=== PATIENT | female | born 1930 | race Caucasian/White ===

== ENCOUNTER 2018-12-02 10:53 | Inpatient (IN) | payer MEDICARE, BC ==
[~2018-12-02] VITALS: Ht 170.2 cm; Wt 70.3 kg
[2018-12-02] MEDS ORDERED: ipratropium/albuterol 3ml nebule NEB ONE (11:20)
[2018-12-02] MEDS ORDERED: BIOT5CAP3 PO (11:32)
[2018-12-02] MEDS ORDERED: CALC500T11 PO (11:32)
[2018-12-02] MEDS ORDERED: DILTIAZEM CD PO (11:32)
[2018-12-02] MEDS ORDERED: FURO-150 PO (11:32)
[2018-12-02] MEDS ORDERED: POTA10TA10 PO (11:32)
[2018-12-02] MEDS ORDERED: CHOL400T PO (11:32)
[2018-12-02] MEDS ORDERED: LEVO50TA66 PO (11:32)
[2018-12-02] MEDS ORDERED: NAPR220C15 PO (11:32)
[2018-12-02] MEDS ORDERED: WARF5TAB9 PO (11:32)
[2018-12-02] MEDS ORDERED: ATEN50TA PO (11:32)
[2018-12-02] MEDS ORDERED: OMEP40CA37 PO (11:32)
[2018-12-02] MEDS ORDERED: levoFLOXACIN-Levaquin 500mg/D5 100 ML IV ONE (11:45)
[2018-12-02] MEDS ORDERED: CefTRIAXone 2gm/D5W 50ml 50 ML IV ONE (11:45)
[2018-12-02 11:47] LABS: BASOPHILS # (AUTO) 0.1 X10'3 (0-0.2); BASOPHILS % (AUTO) 0.6 % (0-1); EOSINOPHILS % (AUTO) 0.1 % (0-6); HEMOGLOBIN 12.4 g/dl (12.0-16.0); LYMPHOCYTES # (AUTO) 0.7 X10'3 (1.1-4.8); LYMPHOCYTES % (AUTO) 6.9 % (21-51); MEAN CORPUSCULAR HEMOGLOBIN 27.5 PG (27.0-31.0); MEAN CORPUSCULAR HGB CONC 32.7 % (33.0-36.5); MEAN CORPUSCULAR VOLUME 84.2 FL (78-98); MEAN PLATELET VOLUME 8.4 FL (7.4-10.4); MONOCYTES # (AUTO) 0.9 X10'3 (0-0.9); MONOCYTES % (AUTO) 9.1 % (2-12); NEUTROPHILS # (AUTO) 8.2 X10'3 (1.8-7.7); NEUTROPHILS % (AUTO) 83.3 % (42-75); PLATELET COUNT 242 X10'3 (140-440); RED BLOOD COUNT 4.51 X10'6 (4.20-5.60); RED CELL DISTRIBUTION WIDTH 13.9 % (11.5-14.5); WHITE BLOOD COUNT 9.9 X10'3 (4.5-11.0)
[2018-12-02 11:59] LABS: INR 2.2 INR; PROTHROMBIN TIME 21.3 SECONDS (9.0-12.0)
[2018-12-02 12:07] LABS: ALANINE AMINOTRANSFERASE 30 U/L (12-78); ALBUMIN 3.2 G/DL (3.4-5.0); ALBUMIN/GLOBULIN RATIO 0.7 (1.1-1.5); ALKALINE PHOSPHATASE 81 IU/L (46-116); ANION GAP 12 (8-16); ASPARTATE AMINO TRANSFERASE 35 U/L (10-37); BILIRUBIN,TOTAL 0.6 MG/DL (0.1-1.0); BLOOD UREA NITROGEN 18 MG/DL (7-18); BUN/CREATININE RATIO 19.8 (6.6-38.0); CALCIUM 8.7 MG/DL (8.5-10.1); CHLORIDE 98 MMOL/L (99-107); CREATININE 0.91 MG/DL (0.40-0.90); GLUCOSE 115 MG/DL (70-104); POTASSIUM 4.1 MMOL/L (3.5-5.1); SODIUM 135 MMOL/L (135-145); TOTAL PROTEIN 7.9 G/DL (6.4-8.2); eGFR 59 ML/MIN
[2018-12-02 12:14] LABS: MAGNESIUM 1.9 MG/DL (1.5-2.4); TROPONIN I < 0.04 NG/ML (0.0-0.05)
[2018-12-02 12:16] LABS: PLATELET ESTIMATE NORMAL; TOTAL CELLS COUNTED 100
[2018-12-02] MEDS ORDERED: oseltamivir phos 75mg capsule PO ONE (12:55)
[2018-12-02] MEDS ORDERED: furosemide 10 MG/1 ML 10ml inj IV ONE (13:20)
[2018-12-02] MEDS ORDERED: ondansetron/PF 4mg/2ml inj IV PRN (13:50)
[2018-12-02] MEDS ORDERED: acetaminophen 325mg tablet PO PRN (13:50)
[2018-12-02] MEDS ORDERED: magnesium hydroxide 30ml (MOM) UD suspension PO PRN (13:50)
[2018-12-02] MEDS ORDERED: mag hydrox/Alum hydrox/simeth 30ml oral suspension PO PRN (13:50)
--- NOTE | 2018-12-02 13:57 | NUR ---
PT WALKED TO THE BATHROOM AND BACK. THIS USED A LOT OF HER ENERGY AND SHE WILL NEED TO USE A BEDSIDE COMMODE FROM NOW ON UNTIL SHE GAINS SOME OF HER STRENGTH BACK AND IS BREATHING BETTER. PT STATES SHE DID NOT TAKE HER LASIX TODAY AND HER SYMPTOMS WITH THIS SOB STARTED THURSDAY EVENING.
[2018-12-02 14:05] LABS: CLARITY,URINE CLEAR (Clear); COLOR,URINE YELLOW (Yellow); GLUCOSE, URINE NEGATIVE (Neg); KETONES,URINE NEGATIVE (Neg); LEUKOCYTE ESTERASE ,URINE NEGATIVE (Neg); NITRITES, URINE NEGATIVE (Neg); OCCULT BLOOD,URINE MODERATE (Neg); PROTEIN,URINE 100 mg/dl (Neg)
[2018-12-02] MEDS ORDERED: albuterol 2.5 MG/3 ML nebule NEB PRN (14:05)
[2018-12-02 14:14] LABS: UA COLLECTION TYPE CLN CATCH MIDSTREAM
[2018-12-02 14:27] LABS: BACTERIA,URINE 1+ /HPF (Neg); SQUAMOUS EPITHELIAL CELL,UR FEW /LPF (FEW)
[2018-12-02 14:28] LABS: WBC,URINE 0-4 /HPF (0-4)
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
--- NOTE | 2018-12-02 17:30 | NUR ---
Received report from Kady WARD in ER. Patient arrived to room 351 on the surgical floor, daughter at bedside
[2018-12-02 18:00] VITALS: BP 120/68
[2018-12-02 18:02] VITALS: BP 121/64
--- NOTE | 2018-12-02 18:20 | NUR ---
Problems reprioritized. Patient report given, Kayla WARD questions answered & plan of care reviewed with .
--- NOTE | 2018-12-02 18:30 | NUR ---
Received report from primary care nurse Tootie WARD. Assumed patient care. Patient is awake and alert on 3LNC visiting with her daughter. In no apparent distress. Call light and items of frequent use within reach. Will continue to monitor for changes.
[2018-12-02] MEDS: DOXYCYCLINE 100MG CAPSULE PO SCH (20:14)
[2018-12-02] MEDS: furosemide 20 MG/2 ML vial IV SCH (20:14)
[2018-12-02] MEDS ORDERED: warfarin 5mg tablet PO ONE (21:00)
[2018-12-03] VITALS: BP 109/57
[2018-12-03 06:03] LABS: BASOPHILS % (AUTO) 0.1 % (0-1); EOSINOPHILS % (AUTO) 0.1 % (0-6); HEMATOCRIT 36.2 % (35.0-45.0); HEMOGLOBIN 12.1 g/dl (12.0-16.0); LYMPHOCYTES # (AUTO) 1.1 X10'3 (1.1-4.8); LYMPHOCYTES % (AUTO) 8.8 % (21-51); MEAN CORPUSCULAR HEMOGLOBIN 27.9 PG (27.0-31.0); MEAN CORPUSCULAR HGB CONC 33.4 % (33.0-36.5); MEAN CORPUSCULAR VOLUME 83.5 FL (78-98); MEAN PLATELET VOLUME 8.8 FL (7.4-10.4); MONOCYTES # (AUTO) 1.2 X10'3 (0-0.9); NEUTROPHILS # (AUTO) 9.9 X10'3 (1.8-7.7); PLATELET COUNT 232 X10'3 (140-440); RED BLOOD COUNT 4.33 X10'6 (4.20-5.60); WHITE BLOOD COUNT 12.2 X10'3 (4.5-11.0)
[2018-12-03 06:07] LABS: ALBUMIN 2.8 G/DL (3.4-5.0); ANION GAP 13 (8-16); BLOOD UREA NITROGEN 16 MG/DL (7-18); BUN/CREATININE RATIO 19.3 (6.6-38.0); CALCIUM 8.1 MG/DL (8.5-10.1); CHLORIDE 96 MMOL/L (99-107); CREATININE 0.83 MG/DL (0.40-0.90); GLUCOSE 101 MG/DL (70-104); POTASSIUM 3.3 MMOL/L (3.5-5.1); SODIUM 135 MMOL/L (135-145); eGFR 65 ML/MIN
[2018-12-03 06:46] LABS: INR 2.6 INR; PROTHROMBIN TIME 25.4 SECONDS (9.0-12.0)
[2018-12-03 07:00] VITALS: BP 129/66
[2018-12-03] MEDS ORDERED: DILT120C19 PO (07:19)
[2018-12-03] MEDS: CefTRIAXone 2gm/D5W 50ml 50 ML IV SCH (08:44)
[2018-12-03] MEDS: furosemide 20 MG/2 ML vial IV SCH ×2 (08:44→19:34)
[2018-12-03] MEDS: DOXYCYCLINE 100MG CAPSULE PO SCH ×2 (08:44→19:35)
[2018-12-03] MEDS: atenolol 50mg tablet PO SCH (08:44)
[2018-12-03] MEDS ORDERED: magnesium 4gm in 100ml NS 100 ML IV PRN (10:45)
[2018-12-03] MEDS ORDERED: magnesium Cl slow-release 64mg tablet PO PRN (10:45)
[2018-12-03] MEDS ORDERED: potassium Cl 20 mEq SR tablet PO PRN (10:45)
[2018-12-03] MEDS ORDERED: potassium Cl 40MEQ/NS 500ml 500 ML IV PRN ×2 (10:45)
[2018-12-03] MEDS: diltiazem CD 120mg capsule (once-daily) PO SCH (11:30)
[2018-12-03] MEDS ORDERED: levoTHYROXINE 25mcg tablet PO SCH (11:30)
[2018-12-03 12:00] VITALS: BP 95/56
[2018-12-03] MEDS ORDERED: LEVO75TA PO (15:26)
[2018-12-03] MEDS: potassium Cl 20 mEq SR tablet PO PRN ×2 (16:04→20:17)
[2018-12-03 18:00] VITALS: BP 123/77
--- NOTE | 2018-12-03 18:22 | NUR ---
Problems reprioritized. Patient report given, questions answered & plan of care reviewed with Kayla WARD.
--- NOTE | 2018-12-03 18:25 | NUR ---
Received report from primary care nurse Victorina WARD. Assumed patient care. Patient is awake and alert on 3L NC in no apparent distress. Assisted patient to bathroom and checked SpO2. SpO2 was 97% on 3LNC. Lowered to 2LNC. Will continue to monitor for changes. Call light and items of frequent use within reach.
[2018-12-03] MEDS: lactobacillus rhamnosus 10,000 MMU CELLS/CAPSULE PO SCH (19:34)
[2018-12-03] MEDS: guaiFENesin/DM 10ml UD oral syrup PO PRN (19:35)
[2018-12-03] MEDS ORDERED: calcium carbonate 500mg chew tablet PO PRN (20:00)
[2018-12-03] MEDS ORDERED: warfarin 3mg tablet PO ONE (21:00)
[2018-12-04] VITALS: BP 118/71
[2018-12-04] MEDS: potassium Cl 20 mEq SR tablet PO PRN (01:51)
[2018-12-04] MEDS: guaiFENesin/DM 10ml UD oral syrup PO PRN ×2 (01:51→09:18)
--- NOTE | 2018-12-04 06:33 | NUR ---
Reported off to Catalina WARD. Patient is resting with relaxed and unlabored respirations on 1.5LNC. In no apparent distress. Call light and items of frequent use within reach.
[2018-12-04 07:12] LABS: BASOPHILS % (AUTO) 0.3 % (0-1); EOSINOPHILS # (AUTO) 0.2 X10'3 (0-0.9); EOSINOPHILS % (AUTO) 1.6 % (0-6); HEMATOCRIT 40.4 % (35.0-45.0); HEMOGLOBIN 13.1 g/dl (12.0-16.0); LYMPHOCYTES # (AUTO) 1.4 X10'3 (1.1-4.8); LYMPHOCYTES % (AUTO) 12.4 % (21-51); MEAN CORPUSCULAR HEMOGLOBIN 27.3 PG (27.0-31.0); MEAN CORPUSCULAR HGB CONC 32.3 % (33.0-36.5); MEAN CORPUSCULAR VOLUME 84.4 FL (78-98); MEAN PLATELET VOLUME 8.9 FL (7.4-10.4); MONOCYTES # (AUTO) 1.1 X10'3 (0-0.9); MONOCYTES % (AUTO) 10.1 % (2-12); NEUTROPHILS # (AUTO) 8.3 X10'3 (1.8-7.7); NEUTROPHILS % (AUTO) 75.6 % (42-75); PLATELET COUNT 271 X10'3 (140-440); RED BLOOD COUNT 4.78 X10'6 (4.20-5.60); RED CELL DISTRIBUTION WIDTH 14.7 % (11.5-14.5)
[2018-12-04 07:16] LABS: ALBUMIN 2.7 G/DL (3.4-5.0); ANION GAP 11 (8-16); BLOOD UREA NITROGEN 23 MG/DL (7-18); BUN/CREATININE RATIO 26.7 (6.6-38.0); CALCIUM 8.8 MG/DL (8.5-10.1); CHLORIDE 100 MMOL/L (99-107); CREATININE 0.86 MG/DL (0.40-0.90); GLUCOSE 86 MG/DL (70-104); SODIUM 138 MMOL/L (135-145); TOTAL CARBON DIOXIDE 26.9 MMOL/L (24-32); eGFR 63 ML/MIN
[2018-12-04 07:30] LABS: INR 2.2 INR; PROTHROMBIN TIME 21.5 SECONDS (9.0-12.0)
[2018-12-04 07:50] VITALS: BP 111/60
[2018-12-04] MEDS: diltiazem CD 120mg capsule (once-daily) PO SCH (07:58)
[2018-12-04] MEDS: DOXYCYCLINE 100MG CAPSULE PO SCH ×2 (07:58→19:43)
[2018-12-04] MEDS: cholecalciferol (vitamin D) 400 unit tablet PO SCH (07:58)
[2018-12-04] MEDS: lactobacillus rhamnosus 10,000 MMU CELLS/CAPSULE PO SCH ×2 (07:58→19:43)
[2018-12-04] MEDS: levoTHYROXINE 75mcg tablet PO SCH (07:58)
[2018-12-04] MEDS: pantoprazole 40mg Tablet.DR PO SCH (07:59)
[2018-12-04] MEDS: furosemide 20 MG/2 ML vial IV SCH ×2 (07:59→19:43)
[2018-12-04] MEDS: CefTRIAXone 2gm/D5W 50ml 50 ML IV SCH (07:59)
[2018-12-04] MEDS: atenolol 50mg tablet PO SCH (07:59)
[2018-12-04] MEDS ORDERED: potassium chloride 10mEq ER tablet PO SCH (08:00)
[2018-12-04] MEDS: potassium chloride 10mEq ER tablet PO SCH (08:07)
--- NOTE | 2018-12-04 08:30 | NUR ---
PATIENTS HEART RATE 130S-140S. DR. OSBORN AWARE. NO NEW ORDERS.
[2018-12-04 11:17] VITALS: BP 98/63
[2018-12-04 18:00] VITALS: BP 111/60
--- NOTE | 2018-12-04 18:21 | NUR ---
Problems reprioritized. Patient report given, questions answered & plan of care reviewed with ED Garza.
--- NOTE | 2018-12-04 18:25 | NUR ---
Received report from primary care nurse Catalina WARD. Assumed patient care. Patient is awake and alert on RA visiting with her son who is at the bedside. Call light and items of frequent use within reach. Will continue to monitor for changes.
[2018-12-04] MEDS ORDERED: warfarin 4mg tablet PO ONE (21:00)
[2018-12-05] VITALS: BP 96/59
[2018-12-05 05:15] LABS: ANION GAP 7 (8-16); BLOOD UREA NITROGEN 23 MG/DL (7-18); BUN/CREATININE RATIO 23.7 (6.6-38.0); CHLORIDE 100 MMOL/L (99-107); CREATININE 0.97 MG/DL (0.40-0.90); GLUCOSE 102 MG/DL (70-104); POTASSIUM 3.4 MMOL/L (3.5-5.1); SODIUM 137 MMOL/L (135-145); TOTAL CARBON DIOXIDE 29.6 MMOL/L (24-32)
[2018-12-05 05:16] LABS: ALBUMIN 2.6 G/DL (3.4-5.0); CALCIUM 8.5 MG/DL (8.5-10.1); eGFR 54 ML/MIN
[2018-12-05 05:18] LABS: PROTHROMBIN TIME 28.2 SECONDS (9.0-12.0)
[2018-12-05 05:19] LABS: INR 2.9 INR
[2018-12-05 05:37] LABS: BASOPHILS % (AUTO) 0.4 % (0-1); EOSINOPHILS # (AUTO) 0.1 X10'3 (0-0.9); EOSINOPHILS % (AUTO) 1.1 % (0-6); HEMOGLOBIN 12.7 g/dl (12.0-16.0); LYMPHOCYTES # (AUTO) 1.6 X10'3 (1.1-4.8); LYMPHOCYTES % (AUTO) 16.1 % (21-51); MEAN CORPUSCULAR HGB CONC 32.7 % (33.0-36.5); MEAN CORPUSCULAR VOLUME 82.8 FL (78-98); MEAN PLATELET VOLUME 8.6 FL (7.4-10.4); MONOCYTES # (AUTO) 1.3 X10'3 (0-0.9); MONOCYTES % (AUTO) 12.8 % (2-12); NEUTROPHILS % (AUTO) 69.6 % (42-75); PLATELET COUNT 304 X10'3 (140-440); RED BLOOD COUNT 4.71 X10'6 (4.20-5.60); RED CELL DISTRIBUTION WIDTH 14.9 % (11.5-14.5)
--- NOTE | 2018-12-05 06:25 | NUR ---
Reported off to Lolis WARD. Patient is resting with relaxed and unlabored respirations on 1LNC. In no apparent distress. Call light and items of frequent use within reach.
--- NOTE | 2018-12-05 06:30 | NUR ---
Patient in room [facility] 351. I have received report from Kayla WARD and had the opportunity to ask questions and assume patient care.
[2018-12-05 07:00] VITALS: BP 77/47
[2018-12-05 07:30] VITALS: BP 92/50
[2018-12-05] MEDS: furosemide 20 MG/2 ML vial IV SCH (07:36)
[2018-12-05] MEDS: atenolol 50mg tablet PO SCH (07:37)
[2018-12-05] MEDS: diltiazem CD 120mg capsule (once-daily) PO SCH (07:37)
[2018-12-05] MEDS: CefTRIAXone 2gm/D5W 50ml 50 ML IV SCH (07:55)
[2018-12-05] MEDS: levoTHYROXINE 75mcg tablet PO SCH (07:55)
[2018-12-05] MEDS: lactobacillus rhamnosus 10,000 MMU CELLS/CAPSULE PO SCH (07:55)
[2018-12-05] MEDS: pantoprazole 40mg Tablet.DR PO SCH (07:55)
[2018-12-05] MEDS: potassium chloride 10mEq ER tablet PO SCH (07:55)
[2018-12-05] MEDS: cholecalciferol (vitamin D) 400 unit tablet PO SCH (07:55)
[2018-12-05] MEDS: DOXYCYCLINE 100MG CAPSULE PO SCH (07:55)
--- NOTE | 2018-12-05 08:21 | NUR ---
Got a call from the tribr, patient's heart rate was between 130's to 140's. BP this am was low 77/47, repeat was 92/50. All BP meds were held due to low BP including Cardizem. Dr. Medina notified about this via [employer] system Addendum: 12/05/18 at 0828 by Lolis Nelson RN Dr. Medina called back - he told me to give the AM dose of Atenolol
[2018-12-05] MEDS ORDERED: atenolol 50mg tablet PO ONE (08:30)
[2018-12-05 08:37] VITALS: BP 101/63
[2018-12-05 11:00] VITALS: BP 105/61
--- NOTE | 2018-12-05 11:08 | NUR ---
O2 Sat at rest on room air: 96___% If below 89%: Recovery O2 Sat at rest on _1__LPM:___%:__96_% via_nasal cannula____(mask/nasal cannula, etc..) No further documentation is necessary. If O2 Sat did not drop below 89% on room air,ambulate patient on room air. O2 Sat while ambulating on room air:_95__% Recovery O2 Sat while ambulating on __1_LPM:__96_% No further documentation is necessary. If patient does not drop below 89% while ambulating, he/she does not qualify for home O2.
[2018-12-05] MEDS ORDERED: ALBU8HFA PO (11:28)
[2018-12-05] MEDS ORDERED: FURO-149 PO (11:28)
[2018-12-05] MEDS ORDERED: POTA20TA19 PO (11:28)
[2018-12-05] MEDS ORDERED: CEFD300C3 PO (11:28)
--- NOTE | 2018-12-05 12:41 | NUR ---
Received a phone call from [facility] pharmacy about the concern for Cefdinir prescription because patient is allergic to penicillin. Pharmacist recommend change antibiotic into a different kind. Dr. Medina notified via [employer] system Addendum: 12/05/18 at 1335 by Lolis Nelson RN Dr. Medina called me back, he ordered Doxycycline PO into the discharge home medication
[2018-12-05] MEDS ORDERED: BENZ-16 PO (13:04)
[2018-12-05] MEDS ORDERED: DOXY100C2 PO (13:04)
--- NOTE | 2018-12-05 13:36 | NUR ---
Discharge instructions given to patient and son. Patient and son verbalized understanding of all instructions made. New prescriptions called in to [facility] in [facility]. Peripheral IV catheter removed, tip intact. Belongings sent with the patient
== END 2018-12-05 13:40 | disposition home health service (06) | DRG 291 ==
LOC: ER 10:54 → ED HOLD 13:46 → SUR 3N 17:37
PROVIDERS: ADMIT Family Medicine; ATTEND Family Medicine
DX: I11.0 Hypertensive heart disease with heart failure (principal); J18.9 Pneumonia, unspecified organism; J96.01 Acute respiratory failure with hypoxia; I50.31 Acute diastolic (congestive) heart failure; I48.91 Unspecified atrial fibrillation; E87.6 Hypokalemia; E03.9 Hypothyroidism, unspecified; K21.9 Gastro-esophageal reflux disease without esophagitis; Z90.710 Acquired absence of both cervix and uterus; Z88.0 Allergy status to penicillin; Z88.2 Allergy status to sulfonamides; Z88.1 Allergy status to other antibiotic agents; Z88.8 Allergy status to other drugs, medicaments and biological substances; Z79.890 Hormone replacement therapy; Z79.899 Other long term (current) drug therapy
CPT/HCPCS: 36415; 71045; 80048; 80053; 81001; 83735; 83880; 84145; 84484; 85025; 85610; 87070; 87502; 87503; 93005; 93306; 94640; 94760; 96365; 96367; 99285; G0378; J0696; J1940; J1956